=== PATIENT | female | born 1940 | race Caucasian/White ===

== ENCOUNTER → 2017-11-24 | Outpatient (CLI) | payer MEDICARE ==
--- NOTE | 2017-11-24 11:55 | Diagnostic Imaging Report ---
PROCEDURE:X-RAY ABDOMEN - KUB COMPARISON:06/24/2016. INDICATIONS:CALCULUS OF KIDNEY FINDINGS: The bowel gas pattern is nonobstructive. No calcifications project over the renal shadows or expected ureteral courses. Right hemipelvic phleboliths are unchanged. No mass effect or organomegaly. Regional skeletal structures remain intact. CONCLUSION: No plain film evidence of urolithiasis. Dictated by: Aj Parsons M.D. on 11/24/2017 at 11:57 Electronically approved by: Aj Parsons M.D. on 11/24/2017 at 11:57
== END ==
LOC: RAD 11:17
PROVIDERS: ATTEND Urology
DX: N20.0 Calculus of kidney (principal)
CPT/HCPCS: 74018

== ENCOUNTER → 2018-12-09 | Outpatient (CLI) | payer MEDICARE ==
--- NOTE | 2018-12-09 15:39 | Diagnostic Imaging Report ---
Abdomen, 2 views. History: Stones. Findings: The intestinal gas pattern is nonobstructive. Tiny stone overlies the upper pole of the right kidney. There no masses. There is vascular calcification in the iliac arteries. Pelvic calcification is likely secondary to phleboliths. The osseous structures are intact. IMPRESSION: Right renal lithiasis. Signed by: Dr. Bharathi Haley DO on 12/09/2018 3:35 PM
== END ==
LOC: RAD 11:04
PROVIDERS: ATTEND Urology
DX: N20.0 Calculus of kidney (principal)
CPT/HCPCS: 74018

== ENCOUNTER → 2019-05-26 | Outpatient (CLI) | payer MEDICARE ==
--- NOTE | 2019-05-26 10:46 | Diagnostic Imaging Report ---
Exam: KUB - 1 view Indication: Renal calculi Comparison: KUB of 12/09/2018 Findings: No radiographically apparent renal calculi. Nonobstructive bowel gas pattern. No free air. Osseous structures demonstrate mild degenerative changes of the spine and both hip joints. Phleboliths in the pelvis. Impression: No radiographically apparent renal calculi. Signed by: Ifeanyi Sutherland MD on 05/26/2019 10:43 AM
--- NOTE | 2019-05-26 12:12 | Diagnostic Imaging Report ---
EXAM: Renal Ultrasound INDICATION: ^[id number] ^[id number] ^CYST OF KIDNEY COMPARISON: Multiple prior renal ultrasounds TECHNIQUE: Transverse and longitudinal images of the kidneys and bladder were obtained. FINDINGS: Right Kidney: Length: 9.2 cm Appearance: Normal echogenicity. Collecting system: No hydronephrosis Stones: None Cyst/Mass: Simple anechoic cysts measure up to 2.3 and 1.5cm. Left Kidney: Length: 9.5 cm Appearance: Normal echogenicity. Collecting system: No hydronephrosis Stones: None Cyst/Mass: None Bladder: No mass or calculi. Bilateral ureteral jets visualized. Prevoid volume estimate of 102 cc IMPRESSION: No hydronephrosis or renal calculi. Right renal cysts as above. Signed by: Ifeanyi Sutherland MD on 05/26/2019 12:09 PM
== END ==
LOC: US 09:53
PROVIDERS: ATTEND Urology
DX: N28.1 Cyst of kidney, acquired (principal)
CPT/HCPCS: 74018; 76770

== ENCOUNTER 2020-09-18 15:26 | Emergency (ER) | payer MEDICARE ==
[~2020-09-18] VITALS: Ht 157.5 cm; Wt 56.7 kg
[2020-09-18] MEDS ORDERED: ONDANSETRON HCL INJ 2MG/ML 2ML 2 MG/ML VIAL IV STA (16:04)
[2020-09-18] MEDS ORDERED: MORPHINE SULFATE INJ 2 MG/ML SYR IV STA (16:04)
[2020-09-18] MEDS ORDERED: SODIUM CHLORIDE 0.9% 500ML 500 ML IV ONE (16:15)
[2020-09-18 16:36] LABS: BASOPHILS # (AUTO) 0.1 (0.0-0.1); BASOPHILS % 0.8 % (0.0-1.0); EOSINOPHILS # (AUTO) 0.1 (0.0-0.4); EOSINOPHILS % 1.5 % (0.0-6.0); HEMATOCRIT 38.6 % (34.2-44.1); HEMOGLOBIN 12.6 g/dL (12.0-16.0); LYMPHOCYTES # (AUTO) 1.1 (1.0-3.2); LYMPHOCYTES % 17.3 % (18.0-39.1); MEAN CORPUSCULAR HEMOGLOBIN 30.7 pg (28-32); MEAN CORPUSCULAR HGB CONC 32.6 g/dL (31-35); MEAN CORPUSCULAR VOLUME 94.1 fL (81-99); MONOCYTES # (AUTO) 0.4 (0.2-0.8); NEUTROPHILS # (AUTO) 4.5 (2.1-6.9); NEUTROPHILS % 73.2 % (38.7-80.0); PLATELET COUNT 280 x10e3/uL (140-360); RED CELL DISTRIBUTION WIDTH 13.8 % (11.7-14.4)
[2020-09-18 16:47] LABS: INR 0.86; PROTHROMBIN TIME 12.2 seconds (11.9-14.5)
[2020-09-18 16:48] LABS: PARTIAL THROMBOPLASTIN TIME 26.9 seconds (23.8-35.5)
[2020-09-18 16:54] LABS: ALANINE AMINOTRANSFERASE 10 IU/L (0-55); ALBUMIN 4.1 g/dL (3.5-5.0); ALBUMIN/GLOBULIN RATIO 1.3 (0.8-2.0); ALKALINE PHOSPHATASE 112 IU/L (40-150); ANION GAP 14.9 mmol/L (8-16); BLOOD UREA NITROGEN 13 mg/dL (7-26); BUN/CREATININE RATIO 17 (6-25); CALCIUM 9.9 mg/dL (8.4-10.2); CARBON DIOXIDE 25 mmol/L (22-29); CHLORIDE 104 mmol/L (98-107); CREATINE KINASE 32 IU/L (29-168); CREATININE, SERUM 0.76 mg/dL (0.57-1.11); EST GLOMERULAR FILTRATION RATE > 60 ML/MIN (60-); GLUCOSE 99 mg/dL (74-118); POTASSIUM 3.9 mmol/L (3.5-5.1); SODIUM 140 mmol/L (136-145)
[2020-09-18 17:25] LABS: CLARITY,URINE SL CLOUDY (CLEAR); COLOR,URINE STRAW (YELLOW); KETONES,URINE 2+ (NEGATIVE); LEUKOCYTE ESTERASE ,URINE NEGATIVE (NEGATIVE); NITRITE,URINE NEGATIVE (NEGATIVE); PROTEIN,URINE DIPSTICK NEGATIVE (NEGATIVE); URINE UROBILINOGEN 0.2 mg/dL (0.2 - 1)
[2020-09-18 17:35] LABS: AMORPHOUS SEDIMENT,URINE FEW (FEW); BACTERIA,URINE MODERATE /HPF; EPITHELIAL CELLS,URINE FEW /LPF; WBC,URINE (MAN) 0-5 /HPF (0-5)
[2020-09-18] MEDS ORDERED: KETOROLAC TROMETHAMINE 30 MG/ML VIAL IV STA (18:09)
[2020-09-18 18:50] VITALS: BP 173/68
== END 2020-09-18 19:05 | disposition home or self-care (01) ==
LOC: ER 15:45
DX: M54.5 Low back pain (principal); M48.56XA Collapsed vertebra, not elsewhere classified, lumbar region, initial encounter for fracture; K44.9 Diaphragmatic hernia without obstruction or gangrene; R94.31 Abnormal electrocardiogram [ECG] [EKG]
CPT/HCPCS: 36415; 74176; 80053; 81001; 82550; 82553; 84484; 85025; 85610; 85730; 87086; 93005; 99284; J1885; J2270; J2405; J7040